=== PATIENT | female | born 1960 | race Caucasian/White ===

== ENCOUNTER 2016-10-10 11:04 | Outpatient (CLI) | payer BC ==
--- NOTE | 2016-10-10 12:14 | RAD ---
CHEST 2 VIEWS: HISTORY: Influenza, bronchitis. COMPARISON: Chest 1 view 05/16/13. FINDINGS: Lungs are clear. No pneumothorax or effusion. Cardiac silhouette and mediastinal contours are norm al. No acute osseous abnormality. IMPRESSION: No acute abnormality. POS: [facility]
== END 2016-10-10 11:05 | disposition home or self-care (01) ==
LOC: MADRAD 11:04
PROVIDERS: ATTEND Family Medicine
DX: J11.1 Influenza due to unidentified influenza virus with other respiratory manifestations (principal)
CPT/HCPCS: 71020

== ENCOUNTER 2017-03-14 20:21 | Emergency (ER) | payer BC ==
[2017-03-14] MEDS ORDERED: cefTRIAXone\\ROCEPHIN 1 GM VIAL ONE (20:56)
[2017-03-14] MEDS ORDERED: Lidocaine 1% 20 ML MDV ONE (20:56)
== END 2017-03-14 21:20 | disposition home or self-care (01) ==
LOC: MADERS 20:21
DX: L03.116 Cellulitis of left lower limb (principal); L03.115 Cellulitis of right lower limb; Z79.899 Other long term (current) drug therapy
CPT/HCPCS: 96372; J0696; J2001

== ENCOUNTER 2017-06-02 16:02 | Outpatient (CLI) | payer BC | END 2017-06-02 16:03 | disposition home or self-care (01) | LOC: MADEKG 16:02 → MADRAD 16:02 → MADEKG 16:03 | PROVIDERS: ATTEND Family Medicine | DX: I10 Essential (primary) hypertension (principal) | CPT/HCPCS: 93005; 93010 ==